=== PATIENT | female | born 1945 | race Caucasian/White ===

== ENCOUNTER 2020-11-02 20:36 | Emergency (ER) | payer OTHER ==
[2020-11-02 21:55] LABS: BASOPHIL 0.7 % (0-2); EOSINOPHIL 2.7 % (0-7); HCT 38.6 % (37.0-47.0); HGB 12.3 g/dl (12.5-16.0); LYMPHOCYTE 13.6 % (15-48); MCH 29.5 pg (25.0-31.0); MCHC 31.9 g/dL (32.0-36.0); MCV 92.6 fL (78.0-100.0); MONOCYTE 9.3 % (0-12); MPV 9.4 fL (6.0-9.5); NEUTROPHIL 73.4 % (41-80); NRBC 0; PLT 279 K/uL (150-400); RBC 4.17 M/uL (4.20-5.40); RDW 13.4 % (11.5-14.0); WBC 7.5 K/uL (4.0-10.5)
[2020-11-02 22:21] LABS: ALBUMIN 3.4 g/dL (3.4-5.0); BILIRUBIN - TOTAL 0.3 mg/dL (0.2-1.0); BUN/CREAT RATIO (CALC) 23.3 RATIO; CREATININE 0.9 mg/dL (0.51-0.95); FT4 (FREE T4) 1.4 ng/dL (0.76-1.46); GLOBULIN (CALCULATION) 3.5 g/dL; POTASSIUM 4.5 mmol/L (3.5-5.1); TOTAL PROTEIN 6.9 g/dL (6.4-8.2)
[2020-11-02] MEDS ORDERED: CLEOCIN HCL150 MG PO (22:32)
== END 2020-11-02 23:15 | disposition home or self-care (01) ==
LOC: FER 20:36
PROVIDERS: Emergency Medicine Emergency Medical Services
DX: R00.2 Palpitations (principal); K04.7 Periapical abscess without sinus; R07.89 Other chest pain; I48.91 Unspecified atrial fibrillation; I10 Essential (primary) hypertension; E03.9 Hypothyroidism, unspecified; F32.9 Major depressive disorder, single episode, unspecified; Z88.0 Allergy status to penicillin; Z88.8 Allergy status to other drugs, medicaments and biological substances
CPT/HCPCS: 36415; 71045; 80053; 84439; 84443; 84484; 85025; 93005

== ENCOUNTER 2021-03-24 13:16 | Day surgery (SDCO) | payer OTHER ==
[~2021-03-24] VITALS: Ht 160 cm; Wt 101.8 kg
[~2021-03-24 13:16] MED LIST: CLEOCIN HCL150 MG PO
[2021-03-24 14:02] LABS: BASOPHIL 0.4 % (0-2); EOSINOPHIL 2.9 % (0-7); HCT 41.4 % (37.0-47.0); HGB 13.5 g/dl (12.5-16.0); LYMPHOCYTE 12.1 % (15-48); MCH 29.9 pg (25.0-31.0); MCHC 32.6 g/dL (32.0-36.0); MCV 91.6 fL (78.0-100.0); MONOCYTE 7.6 % (0-12); MPV 9.8 fL (6.0-9.5); NEUTROPHIL 76.7 % (41-80); NRBC 0; PLT 293 K/uL (150-400); RBC 4.52 M/uL (4.20-5.40); RDW 12.6 % (11.5-14.0); WBC 11.7 K/uL (4.0-10.5)
[2021-03-24 14:24] LABS: ALBUMIN 3.4 g/dL (3.4-5.0); BILIRUBIN - TOTAL 0.3 mg/dL (0.2-1.0); BUN/CREAT RATIO (CALC) 25.3 RATIO; CREATININE 0.91 mg/dL (0.51-0.95); GLOBULIN (CALCULATION) 4.4 g/dL; POTASSIUM 3.5 mmol/L (3.5-5.1); TOTAL PROTEIN 7.8 g/dL (6.4-8.2)
[2021-03-24 14:35] LABS: INR 1.1 (0.9-1.2); PROTHROMBIN TIME 13.5 SECONDS (11.4-13.6)
[2021-03-24] MEDS ORDERED: SYNTHROID125 MCG PO (19:18)
[2021-03-24] MEDS ORDERED: HCTZ25 MG PO (19:19)
[2021-03-24] MEDS ORDERED: TOPROL XL 50 MG50 MG PO (19:20)
[2021-03-24] MEDS ORDERED: VIT D3 PO (19:22)
[2021-03-24] MEDS ORDERED: ZOLOFT50 MG PO (19:22)
[2021-03-24] MEDS ORDERED: COLACE100 MG PO (19:23)
[2021-03-24] MEDS ORDERED: ZOCOR10 MG PO (19:23)
[2021-03-24] MEDS ORDERED: MOTRIN600 MG PO (19:24)
[2021-03-24] MEDS ORDERED: PRILOSEC20 MG PO (19:25)
[2021-03-25 06:43] LABS: BUN/CREAT RATIO (CALC) 27.7 RATIO; CREATININE 0.94 mg/dL (0.51-0.95); POTASSIUM 3.6 mmol/L (3.5-5.1)
[2021-03-26] MEDS ORDERED: DIGITEK125 MCG PO (09:57)
[2021-03-26] MEDS ORDERED: NORCO 5-325 TA1 EACH PO (10:32)
== END 2021-03-26 12:51 | disposition home or self-care (01) ==
LOC: FER 13:16 → FTCU 16:26
PROVIDERS: Physician Assistant; ADMIT Allergy & Immunology Allergy
DX: I48.0 Paroxysmal atrial fibrillation (principal); I35.0 Nonrheumatic aortic (valve) stenosis; I10 Essential (primary) hypertension; E03.9 Hypothyroidism, unspecified; K21.9 Gastro-esophageal reflux disease without esophagitis; L40.52 Psoriatic arthritis mutilans; Z79.899 Other long term (current) drug therapy; Z96.653 Presence of artificial knee joint, bilateral; Z98.890 Other specified postprocedural states; Z88.1 Allergy status to other antibiotic agents; Z88.7 Allergy status to serum and vaccine; Z90.710 Acquired absence of both cervix and uterus
CPT/HCPCS: 36415; 71045; 80048; 80053; 83735; 84145; 84439; 84443; 84484; 85025; 85610; 93005; G0378

== ENCOUNTER 2021-04-09 03:31 | Emergency (ER) | payer OTHER ==
[~2021-04-09 03:31] MED LIST changes: +COLACE100 MG PO; +DIGITEK125 MCG PO; +HCTZ25 MG PO; +MOTRIN600 MG PO; +NORCO 5-325 TA1 EACH PO; +PRILOSEC20 MG PO; +SYNTHROID125 MCG PO; +TOPROL XL 50 MG50 MG PO; +VIT D3 PO; +ZOCOR10 MG PO; +ZOLOFT50 MG PO
[2021-04-09 04:10] LABS: BASOPHIL 0.4 % (0-2); BILIRUBIN NEGATIVE (NEGATIVE); BLOOD TRACE-INTACT Ery/uL (NEGATIVE); CLARITY CLOUDY (CLEAR); COLOR YELLOW (YELLOW); EOSINOPHIL 1.5 % (0-7); GLUCOSE (U) NORMAL (NORMAL); HCT 40.9 % (37.0-47.0); HGB 13.4 g/dl (12.5-16.0); LEUKOCYTES NEGATIVE Leu/uL (NEGATIVE); LYMPHOCYTE 14.4 % (15-48); MCH 29.8 pg (25.0-31.0); MCHC 32.8 g/dL (32.0-36.0); MCV 91.1 fL (78.0-100.0); MONOCYTE 8.6 % (0-12); MPV 9.8 fL (6.0-9.5); NEUTROPHIL 74.8 % (41-80); NITRITE NEGATIVE (NEGATIVE); NRBC 0; PLT 347 K/uL (150-400); PROTEIN NEGATIVE (NEGATIVE); RBC 4.49 M/uL (4.20-5.40); RDW 12.8 % (11.5-14.0); SPECIFIC GRAVITY 1.015 (1.001-1.030); UROBILINOGEN 0.2 mg/dL (0.2-1.0); WBC 13.6 K/uL (4.0-10.5); pH 6.5 (5.0-9.0)
[2021-04-09 04:14] LABS: INR 1.29 (0.9-1.2); PROTHROMBIN TIME 15.3 SECONDS (11.4-13.6)
[2021-04-09 04:15] LABS: PTT 41.5 SECONDS (22.2-34.7)
[2021-04-09 04:18] LABS: AMORPHOUS URATES CRYSTALS TRACE; URINARY RBC RARE; URINARY WBC RARE
[2021-04-09 04:30] LABS: ALBUMIN 3.4 g/dL (3.4-5.0); BILIRUBIN - TOTAL 0.3 mg/dL (0.2-1.0); BUN/CREAT RATIO (CALC) 20.9 RATIO; CREATININE 0.86 mg/dL (0.51-0.95); FT4 (FREE T4) 1.1 ng/dL (0.76-1.46); POTASSIUM 3.4 mmol/L (3.5-5.1); PRO-BNP 200 pg/mL (<450); TOTAL PROTEIN 8.4 g/dL (6.4-8.2)
== END 2021-04-09 06:55 | disposition home or self-care (01) ==
LOC: FER 03:31
PROVIDERS: Emergency Medicine Emergency Medical Services
DX: I48.0 Paroxysmal atrial fibrillation (principal); I10 Essential (primary) hypertension; Z79.01 Long term (current) use of anticoagulants; Z79.899 Other long term (current) drug therapy; Z88.1 Allergy status to other antibiotic agents; Z88.7 Allergy status to serum and vaccine; I35.0 Nonrheumatic aortic (valve) stenosis
CPT/HCPCS: 36415; 71045; 74018; 80053; 80162; 81001; 83735; 83880; 84439; 84443; 84484; 85025; 85610; 85730; 93005

== ENCOUNTER 2021-04-18 21:24 | Emergency (ER) | payer OTHER ==
[2021-04-18 21:56] LABS: BASOPHIL 0.4 % (0-2); EOSINOPHIL 1.4 % (0-7); HCT 42.7 % (37.0-47.0); HGB 14.1 g/dl (12.5-16.0); LYMPHOCYTE 16.6 % (15-48); MCH 29.6 pg (25.0-31.0); MCV 89.7 fL (78.0-100.0); MONOCYTE 12.3 % (0-12); MPV 9.9 fL (6.0-9.5); NRBC 0; PLT 330 K/uL (150-400); RBC 4.76 M/uL (4.20-5.40); RDW 12.8 % (11.5-14.0); WBC 10.4 K/uL (4.0-10.5)
[2021-04-18 22:07] LABS: INR 1.42 (0.9-1.2); PROTHROMBIN TIME 16.5 SECONDS (11.4-13.6)
[2021-04-18 22:22] LABS: ALBUMIN 3.7 g/dL (3.4-5.0); BILIRUBIN - TOTAL 0.4 mg/dL (0.2-1.0); CREATININE 0.98 mg/dL (0.51-0.95); GLOBULIN (CALCULATION) 5.1 g/dL; POTASSIUM 3.6 mmol/L (3.5-5.1); TOTAL PROTEIN 8.8 g/dL (6.4-8.2)
[2021-04-18 22:27] LABS: PRO-BNP 246 pg/mL (<450)
== END 2021-04-19 02:30 | disposition home or self-care (01) ==
LOC: FER 21:24
PROVIDERS: Emergency Medicine
DX: I48.91 Unspecified atrial fibrillation (principal); I10 Essential (primary) hypertension; Z88.1 Allergy status to other antibiotic agents; Z79.01 Long term (current) use of anticoagulants; Z79.899 Other long term (current) drug therapy
CPT/HCPCS: 36415; 71045; 80053; 83880; 84484; 85025; 85610; 93005

== ENCOUNTER 2021-04-27 20:38 | Emergency (ER) | payer OTHER ==
[2021-04-27 21:00] LABS: BASOPHIL 0.4 % (0-2); HCT 42.2 % (37.0-47.0); HGB 13.7 g/dl (12.5-16.0); LYMPHOCYTE 13.6 % (15-48); MCHC 32.5 g/dL (32.0-36.0); MCV 89.4 fL (78.0-100.0); MONOCYTE 9.2 % (0-12); MPV 9.9 fL (6.0-9.5); NEUTROPHIL 75.6 % (41-80); NRBC 0; PLT 351 K/uL (150-400); RBC 4.72 M/uL (4.20-5.40); RDW 13.1 % (11.5-14.0); WBC 12.1 K/uL (4.0-10.5)
[2021-04-27 21:34] LABS: ALBUMIN 3.5 g/dL (3.4-5.0); BILIRUBIN - TOTAL 0.4 mg/dL (0.2-1.0); BUN/CREAT RATIO (CALC) 22.2 RATIO; CREATININE 0.99 mg/dL (0.51-0.95); FT4 (FREE T4) 1.5 ng/dL (0.76-1.46); GLOBULIN (CALCULATION) 4.7 g/dL; POTASSIUM 3.4 mmol/L (3.5-5.1); TOTAL PROTEIN 8.2 g/dL (6.4-8.2)
[2021-04-27 22:54] LABS: BILIRUBIN NEGATIVE (NEGATIVE); BLOOD TRACE-INTACT Ery/uL (NEGATIVE); CLARITY CLEAR (CLEAR); COLOR YELLOW (YELLOW); GLUCOSE (U) NORMAL (NORMAL); LEUKOCYTES NEGATIVE Leu/uL (NEGATIVE); NITRITE NEGATIVE (NEGATIVE); PROTEIN NEGATIVE (NEGATIVE); SPECIFIC GRAVITY 1.025 (1.001-1.030); UROBILINOGEN 0.2 mg/dL (0.2-1.0); pH 5.5 (5.0-9.0)
[2021-04-27 23:00] LABS: BACTERIA 1+; SQUAMOUS EPITHELIAL CELLS 20-50; URINARY RBC RARE; URINARY WBC RARE
[2021-04-28] MEDS ORDERED: MICRO-K10 MEQ PO (00:33)
== END 2021-04-28 00:50 | disposition home or self-care (01) ==
LOC: FER 20:38
PROVIDERS: Emergency Medicine Emergency Medical Services
DX: I48.0 Paroxysmal atrial fibrillation (principal); E87.6 Hypokalemia; I10 Essential (primary) hypertension; E03.9 Hypothyroidism, unspecified; Z79.01 Long term (current) use of anticoagulants; Z79.899 Other long term (current) drug therapy; Z79.890 Hormone replacement therapy; Z88.1 Allergy status to other antibiotic agents
CPT/HCPCS: 36415; 71045; 80053; 80162; 81001; 83735; 84439; 84443; 84484; 85025; 93005; J1160